=== PATIENT | female | born 1990 ===

== ENCOUNTER 2020-08-06 07:27 | Emergency (ER) | payer OTHER ==
[~2020-08-06] VITALS: Ht 160 cm; Wt 909.5 kg
[2020-08-06] MEDS ORDERED: FUROSEMIDE20 MG PO (07:38)
[2020-08-06] MEDS ORDERED: PROPRANOLOL HCL10 MG PO (13:40)
[2020-08-06] MEDS ORDERED: MAXALT10 MG PO (13:40)
[2020-08-06] MEDS ORDERED: ULTRAM50 MG PO (13:40)
== END 2020-08-06 13:49 | disposition home or self-care (01) ==
LOC: ER 07:27
DX: G43.509 Persistent migraine aura without cerebral infarction, not intractable, without status migrainosus (principal); G44.89 Other headache syndrome; Z03.818 Encounter for observation for suspected exposure to other biological agents ruled out